=== PATIENT | female | born 1970 | race Caucasian/White ===

== ENCOUNTER → 2022-02-13 | Day surgery (SDC) | payer SELFPAY ==
[~2022-02-13] MED LIST: ARMOUR THYROID60 MG PO; CHONDR SU A NA/HYALUR SOD 1 EACH KIT IO ONE; CLOPIDOGREL75 MG PO; MOXIFLOXACIN HCL(OPTH) 3 ML BTL ONE; NALTREXONE HCL50 MG PO; OMEGA 3 1,0001 EACH PO; OR PHACO EYE KIT ONE; PHENYLEPHRINE HCL 10% 5 ML OPTH SOLN ONE; PREOP PHACO EYE KIT ONE; PROGESTERONE100 MG PO; TROPICAMIDE 1% OPTH SOLN 15 ML BTL ONE; VITAMIN B-121000 MCG PO; VITAMIN K100 MCG PO
[2022-02-13 08:10] VITALS: BP 128/72
== END | disposition home or self-care (01) ==
LOC: OR 05:57
PROVIDERS: ATTEND Ophthalmology
DX: H52.4 Presbyopia (principal); H52.01 Hypermetropia, right eye; E03.9 Hypothyroidism, unspecified; R42 Dizziness and giddiness; Z88.1 Allergy status to other antibiotic agents; Z01.812 Encounter for preprocedural laboratory examination; Z20.822 Contact with and (suspected) exposure to COVID-19; Z79.02 Long term (current) use of antithrombotics/antiplatelets; Z79.899 Other long term (current) drug therapy; Z87.891 Personal history of nicotine dependence
CPT/HCPCS: 0223U; 36415; 66984; 81025; V2632

== ENCOUNTER → 2022-03-03 | Day surgery (SDC) | payer SELFPAY ==
[~2022-03-03] MED LIST changes: -CHONDR SU A NA/HYALUR SOD 1 EACH KIT IO ONE; +CYCLOPENTOLATE HCL 1% OPTH SOLN 2ML BTL ONE; +FENTANYL CITRATE/PF 100MCG/2 ML INJ ONE; +MIDAZOLAM HCL 2 MG/2 ML VIAL ONE
[2022-03-03 11:55] VITALS: BP 137/72
== END | disposition home or self-care (01) ==
LOC: OR 08:40
PROVIDERS: ATTEND Ophthalmology
DX: H52.4 Presbyopia (principal); E03.9 Hypothyroidism, unspecified; D68.51 Activated protein C resistance; Z88.1 Allergy status to other antibiotic agents; Z01.812 Encounter for preprocedural laboratory examination; Z20.822 Contact with and (suspected) exposure to COVID-19; Z79.02 Long term (current) use of antithrombotics/antiplatelets; Z79.899 Other long term (current) drug therapy; Z87.891 Personal history of nicotine dependence
CPT/HCPCS: 0223U; 36415; 66984; 81025; J2250; J3010